=== PATIENT | male | born 2000 | race Caucasian/White ===

== ENCOUNTER 2022-11-30 18:19 | Emergency (ER) | payer OTHER ==
[~2022-11-30] VITALS: Ht 180.3 cm; Wt 137.0 kg
[2022-11-30 18:35] VITALS: BP 139/94
[2022-11-30 20:06] LABS: BASOPHILS % (AUTO) 0.4 % (0.0-2.0); EOSINOPHILS # (AUTO) 0.2 K/uL (0-0.4); EOSINOPHILS % (AUTO) 1.8 % (0.0-4.0); HEMATOCRIT 50.6 % (36-52); HEMOGLOBIN 17.5 g/dL (12.0-18.0); LYMPHOCYTES % (AUTO) 28.2 % (20.5-51.1); MEAN CORPUSCULAR HEMOGLOBIN 31 pg (27-31); MEAN CORPUSCULAR HGB CONC 35 g/dL (33-37); MONOCYTES # (AUTO) 0.9 K/uL (0.8-1.0); MONOCYTES % (AUTO) 8.6 % (1.7-9.3); NEUTROPHILS # (AUTO) 6.4 K/uL (1.8-7.7); PLATELET COUNT (AUTO) 264 K/uL (140-450); RED BLOOD CELL COUNT(AUTO) 5.68 MIL/uL (4.20-6.10); RED CELL DISTRIBUTION WIDTH 13.2 % (11.6-13.7); WHITE BLOOD COUNT (AUTO) 10.5 K/uL (4.8-10.8)
--- NOTE | 2022-11-30 20:12 | NUR ---
Dr. Myers examining patient.
[2022-11-30 20:38] LABS: ALBUMIN 5.2 g/dL (3.4-5.0); ANION GAP 15.6 (8-16); CARBON DIOXIDE 28.9 mmol/L (21-32); CREATININE 1.2 mg/dL (0.6-1.3); POTASSIUM 4.5 mmol/L (3.5-5.1)
[2022-11-30] MEDS ORDERED: DICYCLOMINE HCL LIQUID 20 MG, ALUMINUM HYD/MAG/SIMETHICONE 30 ML, LIDOCAINE VISCOUS 2% ... PO ONE ×3 (20:40)
[2022-11-30] MEDS ORDERED: ONDANSETRON 4 MG ODT PO ONE (20:40)
[2022-11-30] MEDS ORDERED: KETOROLAC 30 MG/ML VIAL IM ONE (20:40)
[2022-11-30] MEDS ORDERED: DICYCLOMINE HCL LIQUID 10 MG/5 ML UDC ONE (20:45)
[2022-11-30] MEDS ORDERED: ALUMINUM HYD/MAG/SIMETHICONE 30 ML UDC ONE (20:45)
--- NOTE | 2022-11-30 20:57 | NUR ---
Patient taken to X-ray via WC.
[2022-11-30] MEDS ORDERED: FAMO-90 PO (21:27)
[2022-11-30] MEDS ORDERED: MAG355OR2 PO (21:27)
[2022-11-30] MEDS ORDERED: ONDA-188 PO (21:27)
[2022-11-30] MEDS ORDERED: MIRABULK PO (21:30)
[2022-11-30] MEDS ORDERED: DOCU1TAB73 PO (21:30)
[2022-11-30 21:44] VITALS: BP 128/94
--- NOTE | 2022-11-30 21:44 | NUR ---
Patient discharged with v/s stable. Written and verbal after care instructions given and explained. Patient alert, oriented and verbalized understanding of instructions. Ambulatory with steady gait. All questions addressed prior to discharge. ID band removed. Patient advised to follow up with PMD. Rx of Zofran, Pepcid, Senna,Maalox and Miralax given. Patient educated on indication of medication including possible reaction and side effects. Opportunity to ask questions provided and answered.
== END 2022-11-30 21:44 | disposition home or self-care (01) ==
LOC: MED 18:19
DX: K29.70 Gastritis, unspecified, without bleeding (principal); K59.00 Constipation, unspecified; K44.9 Diaphragmatic hernia without obstruction or gangrene; Z72.89 Other problems related to lifestyle; Z79.899 Other long term (current) drug therapy; Z90.49 Acquired absence of other specified parts of digestive tract
CPT/HCPCS: 36415; 74021; 80053; 83690; 85025; 96372; 99284; J1885; Q0162